=== PATIENT | female | born 1950 | race Caucasian/White ===

== ENCOUNTER 2024-01-11 13:47 | Emergency (ER) | payer MEDICAID, OTHER ==
[~2024-01-11] VITALS: Ht 162.6 cm; Wt 44.5 kg
[2024-01-11 14:22] VITALS: BP 134/71; TEMP 98
[2024-01-11] MEDS ORDERED: CEPHALEXIN MONOHYDRATE 500 MG CAPSULE PO ONE (14:40)
[2024-01-11] MEDS: CEPHALEXIN MONOHYDRATE 500 MG CAPSULE PO ONE (14:42)
[2024-01-11] MEDS ORDERED: CEPH500C2 PO (15:17)
[2024-01-11 15:32] VITALS: O2SAT 98
== END 2024-01-11 15:33 | disposition home or self-care (01) ==
LOC: ER 13:52
DX: L03.116 Cellulitis of left lower limb (principal); L03.115 Cellulitis of right lower limb

== ENCOUNTER 2024-02-29 12:13 | Emergency (ER) | payer OTHER ==
[~2024-02-29] VITALS: Ht 162.6 cm; Wt 45.4 kg
[~2024-02-29 12:13] MED LIST: CEPH500C2 PO
[2024-02-29] MEDS ORDERED: MUPI15CR TP (14:11)
[2024-02-29] MEDS ORDERED: CLIN300C12 PO (14:11)
[2024-02-29 14:30] VITALS: BP 109/63; TEMP 209.1; O2SAT 96
[2024-02-29] MEDS ORDERED: MUPI22OI2 TP (15:08)
== END 2024-02-29 14:31 | disposition home or self-care (01) ==
LOC: ER 12:28
DX: L03.116 Cellulitis of left lower limb (principal); L03.115 Cellulitis of right lower limb